=== PATIENT | male | born 1980 | race Caucasian/White ===

== ENCOUNTER 2022-08-17 19:35 | Emergency (ER) | payer OTHER ==
[~2022-08-17] VITALS: Ht 172.7 cm; Wt 72.6 kg
[2022-08-17 20:20] VITALS: BP 133/76; TEMP 98.7
[2022-08-17] MEDS ORDERED: PHEN28OI9 RC (20:37)
== END 2022-08-17 20:41 | disposition home or self-care (01) ==
LOC: ER 19:47
DX: K64.9 Unspecified hemorrhoids (principal)